=== PATIENT | male | born 1950 | race Caucasian/White ===

== ENCOUNTER 2021-11-04 09:01 | Emergency (ER) | payer MEDICARE, OTHER ==
[~2021-11-04] VITALS: Ht 182.9 cm; Wt 108.9 kg
[2021-11-04 09:36] LABS: BILIRUBIN,URINE NEGATIVE (NEGATIVE); CLARITY,URINE CLEAR; COLOR,URINE YELLOW; GLUCOSE, URINE (UA) NEGATIVE (NEGATIVE); KETONES,URINE NEGATIVE (NEGATIVE); LEUKOCYTE ESTERASE ,URINE 3+ (NEGATIVE); NITRITE,URINE NEGATIVE (NEGATIVE); PROTEIN,URINE TRACE (NEGATIVE)
[2021-11-04 09:43] LABS: BACTERIA,URINE LARGE /HPF; WBC,URINE TNTC /HPF
[2021-11-04] MEDS ORDERED: cefTRIAXone 1 GM PRE-MIX 50 ML IV ONE (10:00)
[2021-11-04] MEDS ORDERED: LIDOCAINE 1% INJ 50 ML (XYLOCAINE) VIAL ONE (10:05)
--- NOTE | 2021-11-04 10:10 | ED GU-Male ---
General Chief Complaint: - Reproductive Stated Complaint: GROIN/TESTICULAR SWELLING Nursing Triage Note: PT AMBULATE TO ROOM FS06 WITH C/O UTI. PT REPORTS BURNING WITH URINATION, SCROTAL SWELLING, AND PENIS PAIN WHICH IS NORMAL WHEN HE HAS A UTI. 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 PT DENIES PAIN UPON ARRIVAL AND STATES PAIN IS 10/10 WITH URINATION. Source: patient Exam Limitations: no limitations History of Present Illness Date Seen by Provider: November 04, 2021 Time Seen by Provider: 06:50 Timing/Duration: just prior to arrival Severity/Quality: moderate Location: other Radiation: other Activities at Onset: other Prior Genitourinary Problems: none Sexual [place] History: other Allergies and Home Medications Allergies Coded Allergies: No Known Drug Allergies (Unverified , 11/04/21) Patient Home Medication List Home Medication List Reviewed: Yes Cefdinir (Cefdinir) 300 Mg Capsule, 300 MG PO BID Prescribed by: NELLIE SHAHID on 11/04/21 1023 Last Action: New Order Review of Systems Review of Systems Constitutional: see HPI EENTM: see HPI Respiratory: see HPI Cardiovascular: see HPI Gastrointestinal: see HPI Genitourinary: see HPI Musculoskeletal: see HPI Skin: see HPI Psychiatric/Neurological: See HPI Endocrine: See HPI Hematologic/Lymphatic: See HPI All Other Systemes Reviewed Negative Unless Noted: Yes Past Zeyzzjv-Nroahy-Wxkmyi Hx Patient Social History Tobacco Use?: No Smoking Status: Never a Smoker Smokeless Tobacco Frequency: Never a User Use of E-Cig and/or Vaping dev: No Use of E-Cig and/or Vaping Bernard: Never a User Substance use?: No Alcohol Use?: Yes Alcohol type: Beer Alcohol Frequency: Daily Pt feels they are or have been: No Immunizations Up To Date First/Initial COVID19 Vaccinat: 10/29/20 Second COVID19 Vaccination Marco: 12/10/20 COVID19 Vaccine [employer] Associate: MODERNA Physical Exam Vital Signs Vital Signs - First Documented 11/04/21 09:08 Temp 36.9 Pulse 91 Resp 17 B/P (MAP) 155/80 (105) O2 Delivery Room Air Capillary Refill : Less Than 3 Seconds Height, Weight, BMI Height: '" Weight: lbs. oz. kg; 32.00 BMI Method: General Appearance: WD/WN, no apparent distress HEENT: PERRL/EOMI, normal ENT inspection Neck: full range of motion Cardiovascular: regular rate, rhythm Respiratory: chest non-tender, lungs clear Gastrointestinal: non tender, soft Male: other (, scrotal swelling with mild erythema. ) Neurologic/Psychiatric: no motor/sensory deficits, alert, oriented x 3, disoriented x 3 Focused Exam Sepsis Stage: Ruled Out Progress/Results/Core Measures Suspected Sepsis SIRS Temperature: Pulse: 91 Respiratory Rate: 17 Blood Pressure 155 /80 Mean: 105 Results/Orders Lab Results Laboratory Tests Test 11/04/21 09:08 Range/Units Urine Color YELLOW Urine Clarity CLEAR Urine pH 6.0 5-9 Urine Specific Dieterich 1.020 1.016-1.022 Urine Protein TRACE H NEGATIVE Urine Glucose (UA) NEGATIVE NEGATIVE Urine Ketones NEGATIVE NEGATIVE Urine Nitrite NEGATIVE NEGATIVE Urine Bilirubin NEGATIVE NEGATIVE Urine Urobilinogen 0.2 < = 1.0 MG/DL Urine Leukocyte Esterase 3+ H NEGATIVE Urine RBC (Auto) 2+ H NEGATIVE Urine RBC 10-25 H /HPF Urine WBC TNTC H /HPF Urine Crystals NONE /LPF Urine Bacteria LARGE H /HPF Urine Casts NONE /LPF Urine Mucus NEGATIVE /LPF Urine Culture Indicated YES My Orders Orders - NELLIE SHAHID DO Ua Culture If Indicated (11/04/21 09:29) Urine Culture (11/04/21 09:08) Ceftriaxone 1 Gm Pre-Mix (Rocephin 1 Gm (11/04/21 10:00) Ceftriaxone (Rocephin) (11/04/21 10:15) Lidocaine 1% Inj 20 Ml (Xylocaine 1% Inj (11/04/21 10:15) Lidocaine 1% Inj 50 Ml (Xylocaine 1% Inj (11/04/21 10:05) Medications Given in ED Current Medications Medications Dose Ordered Sig/Veronica Route Start Time Stop Time Status Last Admin Dose Admin Ceftriaxone Sodium 1,000 mg ONCE ONCE IM 11/04/21 10:15 11/04/21 10:16 DC 11/04/21 10:13 1,000 MG Lidocaine HCl 50 ml STK-MED ONCE .ROUTE 11/04/21 10:05 11/04/21 10:07 DC 11/04/21 10:14 2.1 ML Vital Signs/I&O 11/04/21 09:08 Temp 36.9 Pulse 91 Resp 17 B/P (MAP) 155/80 (105) O2 Delivery Room Air Capillary Refill : Less Than 3 Seconds Blood Pressure Mean: 105 Departure Impression Primary Impression: Urinary tract infection Disposition: 01 HOME, SELF-CARE Condition: Stable Admissions Decision to Admit/Date: November 04, 2021 Time/Decision to Admit Time: 10:40 Departure-Patient Inst. Decision time for Depature: 10:40 Referrals: NO,LOCAL PHYSICIAN (PCP/Family) Primary Care Physician Patient Instructions: Urinary Tract Infection, Adult (DC) Add. Discharge Instructions: Please increase fluids and take newly prescribed medication as directed. All discharge instructions reviewed with patient and/or family. Voiced understanding. Scripts Cefdinir (Cefdinir) 300 Mg Capsule 300 MG PO BID, #14 CAP Prov: NELLIE SHAHID DO 11/04/21 NELLIE SHAHID DO November 04, 2021 10:10
[2021-11-04] MEDS ORDERED: LIDOCAINE 1% INJ 20 ML VIAL INJ ONE (10:15)
[2021-11-04] MEDS ORDERED: cefTRIAXone 1,000 MG VIAL IM ONE (10:15)
[2021-11-04] MEDS ORDERED: CEFD300C3 PO (10:23)
[2021-11-04 10:55] VITALS: BP 146/71
== END 2021-11-04 10:55 | disposition home or self-care (01) ==
LOC: ER FS 09:04
DX: N39.0 Urinary tract infection, site not specified (principal); Z96.0 Presence of urogenital implants
CPT/HCPCS: 81000; 87077; 87088; 87186; 99284